=== PATIENT | male | born 2000 | race Caucasian/White ===

== ENCOUNTER 2020-12-21 15:43 | Emergency (ER) | payer OTHER ==
[~2020-12-21] VITALS: Ht 175.3 cm; Wt 86.2 kg
[2020-12-21] MEDS ORDERED: AMOXicillin 250 MG CAPSULE PO ONE (17:30)
[2020-12-21] MEDS ORDERED: KETOROLAC TROMETHAMINE 15 MG INJ IM ONE (17:45)
--- NOTE | 2020-12-21 17:55 | NUR ---
Special Delivery Messenger assumes care. Patient is AOx4, calm & breathing easily, c/o throat pains, L>R side of the throat, NAD.
[2020-12-21] MEDS ORDERED: AMOXicillin 250 MG CAPSULE ONE (18:00)
[2020-12-21] MEDS ORDERED: KETOROLAC TROMETHAMINE 15 MG INJ ONE (18:01)
[2020-12-21] MEDS ORDERED: CEPH500C2 PO (18:18)
--- NOTE | 2020-12-21 18:28 | NUR ---
Patient discharged to home in stable condition with brisk steady gait. Written and verbal after care instructions given. Patient verbalized understanding & compliance of instructions. Stressed follow up with is dentist and primary doctor or return to ER for worsening s/s.
[2020-12-21] MEDS ORDERED: CEphaleXIN 500 MG CAPSULE PO ONE (18:30)
[2020-12-21] MEDS ORDERED: CEphaleXIN 500 MG CAPSULE ONE (18:32)
== END 2020-12-21 18:28 | disposition home or self-care (01) ==
LOC: ER 15:44
DX: J02.9 Acute pharyngitis, unspecified (principal); K04.7 Periapical abscess without sinus; Z88.0 Allergy status to penicillin; J45.909 Unspecified asthma, uncomplicated
CPT/HCPCS: 86403; 96372; 99283; J1885; 87070; A4663